=== PATIENT | male | born 1985 | race Two or more races ===

== ENCOUNTER 2020-10-24 00:54 | Inpatient (IN) | payer OTHER ==
[~2020-10-24] VITALS: Ht 185.4 cm; Wt 63.0 kg
[2020-10-24] MEDS ORDERED: KETOROLAC TROMETHAMINE 30 MG/ML VIAL IVP ONE (01:45)
[2020-10-24] MEDS ORDERED: CloNIDine HCL 0.2 MG TABLET PO ONE (01:45)
[2020-10-24] MEDS ORDERED: SODIUM CHLORIDE 0.9% 1,000 ML IV ONE (01:45)
[2020-10-24] MEDS ORDERED: ONDANSETRON HCL 4 MG/2 ML VIAL IVP ONE (01:45)
[2020-10-24 02:07] LABS: BASOPHILS % (AUTO) 0.6 % (0.0-2.0); HEMATOCRIT 42.4 % (41-53); HEMOGLOBIN 14.5 g/dL (13.5-17.5); LYMPHOCYTES # (AUTO) 2.2 K/uL (1.0-4.8); LYMPHOCYTES % (AUTO) 33.2 % (22.0-44.0); MEAN CORPUSCULAR HEMOGLOBIN 30.9 pg (26.0-34.0); MEAN CORPUSCULAR HGB CONC 34.2 G/dL (31.0-37.0); MEAN CORPUSCULAR VOLUME 90 fL (80-100); MONOCYTES # (AUTO) 0.7 K/uL (0.1-1.0); MONOCYTES % (AUTO) 10.7 % (2.0-9.0); NEUTROPHILS # (AUTO) 3.5 K/uL (1.8-7.7); NEUTROPHILS % (AUTO) 52.5 % (40.0-70.0); PLATELET COUNT (AUTO) 187 K/uL (150-450); RED CELL DISTRIBUTION WIDTH 12.6 % (11.5-14.5)
[2020-10-24 02:11] LABS: GLUCOSE,POINT OF CARE 98 MG/DL (70-110)
[2020-10-24 02:16] LABS: ANION GAP 5 mmol/L (8-16); CARBON DIOXIDE 31 mmol/L (22-29); CHLORIDE 102 mmol/L (98-107); CREATININE 0.99 mg/dL (0.60-1.30); GLOMERULAR FILTR. RATE CALC > 60 mL/min (>60); GLUCOSE,RANDOM 101 mg/dL (70-110); POTASSIUM 3.9 mmol/L (3.5-5.1); SODIUM SERUM 138 mmol/L (136-145); UREA NITROGEN, BLOOD 9 mg/dL (7-18)
[2020-10-24 02:22] LABS: ALANINE AMINOTRANSFERASE 43 U/L (12-78); ALBUMIN 3.8 g/dL (3.4-5.0); ALKALINE PHOSPHATASE 76 U/L (46-116); ASPARTATE AMINOTRANSFERASE 23 U/L (15-37); BILIRUBIN,TOTAL 0.3 mg/dL (0.1-1.0); TOTAL PROTEIN, SERUM 7.2 g/dL (6.4-8.2)
[2020-10-24 02:32] LABS: COVID AG,FIA SOURCE NASOPHARYNGEAL
[2020-10-24] MEDS ORDERED: ONDANSETRON HCL 4 MG/2 ML VIAL IVP PRN (02:45)
[2020-10-24 04:07] VITALS: BP 93/61
[2020-10-24] MEDS ORDERED: RINGERS SOLUTION,LACTATED 1,000 ML IV ONE (05:45)
[2020-10-24] MEDS: GABAPENTIN 100 MG CAPSULE PO SCH ×3 (08:01→20:52)
[2020-10-24] MEDS: HEPARIN SODIUM,PORCINE 5,000 UNITS/ML VIAL SQ SCH ×3 (08:01→23:17)
[2020-10-24 08:17] VITALS: BP 99/60
[2020-10-24 09:00] VITALS: BP 128/52
[2020-10-24] MEDS: LORazepam 0.5 MG TABLET PO PRN ×3 (09:39→18:13)
[2020-10-24 12:51] LABS: AMPHET/METH SCREEN,URINE NEGATIVE (NEGATIVE); BARBITURATE SCREEN, URINE NEGATIVE (NEGATIVE); BENZODIAZEPINES SCREEN,URINE POSITIVE (NEGATIVE); CANNABINOID SCREEN,URINE NEGATIVE (NEGATIVE); COCAINE SCREEN,URINE NEGATIVE (NEGATIVE); METHADONE SCREEN, URINE NEGATIVE (NEGATIVE); OPIATE SCREEN,URINE POSITIVE (NEGATIVE); PHENCYCLIDINE SCREEN,URINE NEGATIVE (NEGATIVE)
[2020-10-24] MEDS ORDERED: MAGNESIUM SULFATE 2 GM, MVI, ADULT NO.1 WITH VIT K 10 ML, THIAMINE 100 MG, FOLIC ACID 1... IV ONE ×5 (13:00)
[2020-10-24 14:23] VITALS: BP 110/65
[2020-10-24] MEDS: ACETAMINOPHEN 325 MG TABLET PO PRN ×2 (16:33→20:54)
[2020-10-24] MEDS: LORazepam 1 MG TABLET PO PRN (18:49)
[2020-10-24 19:58] VITALS: BP 114/62
[2020-10-24] MEDS: KETOROLAC TROMETHAMINE 30 MG/ML VIAL IVP PRN (23:17)
[2020-10-25] MEDS: LORazepam 1 MG TABLET PO PRN ×3 (02:44→13:17)
[2020-10-25 04:45] VITALS: BP 104/64
[2020-10-25] MEDS: KETOROLAC TROMETHAMINE 30 MG/ML VIAL IVP PRN ×2 (05:43→23:22)
[2020-10-25 07:32] VITALS: BP 105/57
[2020-10-25] MEDS: HEPARIN SODIUM,PORCINE 5,000 UNITS/ML VIAL SQ SCH ×3 (08:19→23:21)
[2020-10-25] MEDS: MULTIVITAMINS WITH MINERALS, THERAPEUTIC TABLET PO SCH (08:19)
[2020-10-25] MEDS: GABAPENTIN 100 MG CAPSULE PO SCH ×3 (08:19→20:29)
[2020-10-25] MEDS ORDERED: RINGERS SOLUTION,LACTATED 1,000 ML IV ONE (11:15)
[2020-10-25 20:10] VITALS: BP 101/64
[2020-10-25] MEDS: ACETAMINOPHEN 325 MG TABLET PO PRN (20:29)
[2020-10-25] MEDS ORDERED: ZOLPIDEM TARTRATE 5 MG TABLET PO PRN (21:45)
[2020-10-25 23:26] VITALS: BP 133/79
[2020-10-26] MEDS: LORazepam 1 MG TABLET PO PRN ×2 (04:20→09:53)
[2020-10-26] MEDS: ACETAMINOPHEN 325 MG TABLET PO PRN ×2 (04:23→09:54)
[2020-10-26] MEDS: HEPARIN SODIUM,PORCINE 5,000 UNITS/ML VIAL SQ SCH (08:05)
[2020-10-26] MEDS: GABAPENTIN 100 MG CAPSULE PO SCH (08:06)
[2020-10-26] MEDS: MULTIVITAMINS WITH MINERALS, THERAPEUTIC TABLET PO SCH (08:06)
[2020-10-26] MEDS ORDERED: GABA-1216 PO (12:00)
== END 2020-10-26 13:55 | DRG 896 ==
LOC: EMS 00:59 → 6S 03:00
PROVIDERS: ADMIT Internal Medicine; ATTEND Internal Medicine
DX: F11.23 Opioid dependence with withdrawal (principal); E43 Unspecified severe protein-calorie malnutrition; G62.9 Polyneuropathy, unspecified; I95.9 Hypotension, unspecified; F41.9 Anxiety disorder, unspecified; J45.909 Unspecified asthma, uncomplicated; M54.9 Dorsalgia, unspecified; Z88.8 Allergy status to other drugs, medicaments and biological substances; F19.10 Other psychoactive substance abuse, uncomplicated; Z79.899 Other long term (current) drug therapy; Z20.822 Contact with and (suspected) exposure to COVID-19
CPT/HCPCS: 80053; 80307; 82962; 85025; 99285; G0480; J1644; J1885; J2405; J3411; J3475; J3490; J7030; J7120